=== PATIENT | male | born 1955 | race Caucasian/White ===

== ENCOUNTER → 2016-08-11 | Outpatient (CLI) | payer BC ==
[~2016-08-11] MED LIST: ASPIRIN325 M1 PO; ASPIRIN81 MG PO; COREG3.125 MG PO; EFFIENT10 MG PO; LIPITOR40 MG PO; MELATONIN3 M4 PO; NEXIUM PO; NITROGLYGERIN0.4 MG SL
--- NOTE | ~2016-08-11 | US37 ---
[facility] A Service of [facility] & [facility] RADIOLOGY TEXT RESULTS PATIENT: ISAAC RAY LOCATION: CNIV : 53 UNIT #: [id number] AGE: [address]: Cadence Villalobos MD SEX: M ORDER DR: [id number] [facility] [address] [facility]. [place], [place] [address] [id number] O MR#: [id number] [facility] #: [id number] NAME: ISAAC RAY : 1955 SEX: M STUDY DATE/TIME: 08/11/2016 12:28 UNIT: CNIV ROOM: STUDY DESCRIPTION: US Carotid W/Doppler Bilateral Attending Physician: Cadence Villalobos M.D. Referring Physician: Cadence Villalobos M.D. Ordering Physician: Cadence Villalobos M.D. Primary Care Physician: Rufus Gama M.D. MEDICAL IMAGING REPORT This report is preliminary unless electronic signature is present EXAM Carotid duplex scan. DATE OF EXAMINATION 08/11/2016 HISTORY Carotid bruit. FINDINGS The right common carotid artery has no significant plaque. There is a small amount of heterogeneous plaque in the right carotid bulb. The remainder of the right internal and external carotid artery are patient with minimal plaque. Peak systolic velocity in the distal right internal carotid artery is 75 cm/sec with an end-diastolic velocity of 34 cm/sec. The ICA/CCA ratio on the right is 0.61. Peak systolic velocity in the right external carotid artery is 75 cm/sec. The right vertebral artery is patent with antegrade flow. The left common carotid artery has no significant plaque. There is a small amount of heterogeneous plaque in the left carotid bulb. The remainder of the left internal and external carotid arteries are patent with minimal plaque. Peak systolic velocity in the proximal left internal carotid artery is 80 cm/sec with an end-diastolic velocity of 32 cm/sec. The ICA/CCA ratio on the left is 0.76. Peak systolic velocity in the left external carotid artery is 80 cm/sec. The left vertebral artery is patent with antegrade flow. IMPRESSION Small amount of plaque, but no significant stenosis (less than 50%) in the internal and external carotid arteries bilaterally. Patent vertebral arteries bilaterally with antegrade flow. [facility] A Service of [facility] & [facility] RADIOLOGY TEXT RESULTS PATIENT: ISAAC RAY LOCATION: [facility] : 54 UNIT #: [id number] AGE: [address]: Cadence Villalobos MD SEX: M ORDER DR: Dictated by... Reddy Bond M.D. THIS IS AN ELECTRONICALLY VERIFIED REPORT Reddy Bond M.D. at 08/14/2016 8:03 AM MARLENE/diane TD: 08/11/2016 15:18 JOB #: [id number] MEDICAL IMAGING REPORT Page 1 of 1 COPY
== END | disposition home or self-care (01) ==
LOC: CNIV 12:09
DX: R09.89 Other specified symptoms and signs involving the circulatory and respiratory systems (principal); I65.23 Occlusion and stenosis of bilateral carotid arteries
CPT/HCPCS: 93880

== ENCOUNTER → 2016-09-29 | Outpatient (CLI) | payer BC ==
--- NOTE | ~2016-09-29 | ST ---
Unit #: [id number] #: [id number] Patient: ISAAC RAY [id number] [address] [place], [place] [address] [id number] O MR#: [id number] NAME: ISAAC ARY. : 1955 SEX: M STUDY DATE/TIME: 09/29/2016 UNIT: CEKG ROOM: STUDY DESCRIPTION: Attending Physician: Rufus Gama M.D. Referring Physician: Rufus Gama M.D. Primary Care Physician: Rufus Gama M.D. CARDIOLOGY REPORT EXAM Exercise Cardiolite stress test. FINDINGS Baseline EKG: Normal sinus rhythm with ventricular rate 63 beats per minute, mild left atrial abnormality, low voltage in aVL. PROCEDURE Patient walked on the treadmill for 9 minutes and 30 seconds utilizing Winston protocol, achieving a workload of 11.3 METs. EKG during the test showed a [address] depression inferior anterolateral leads with occasional premature ventricular complex and rare PAC. The patient had no complaints of chest pain, palpitations, or dizziness. Had increased shortness of breath and fatigueness which resolved in recovery phase. IMPRESSION 1. Functional class III with a workload of 11.3 METs. 2. The patient walked for 9 minutes and 30 seconds achieving 86% of maximum target heart rate at 137 beats per minute with a hypertensive blood pressure response of 180/82 mmHg. 3. EKG during the test showed a [address] depression inferior anterolateral leads which normalized near the end of recovery phase. The patient had no complaints of chest pain, palpitations, or dizziness. Had increased shortness of breath and fatigueness which resolved in recovery phase. 4. It is also noted that patient had a rare PAC and occasional premature ventricular complex. 5. Patient's blood pressure decreased down to 142/78 mmHg. 6. Cardiolite was injected at maximum target heart rate. Radionuclide tests pending. Please correlate with nuclear images. Dictated by... Aleida Tapia A.P.R.N. for Armen Kim TD: 09/29/2016 12:53 JOB #: [id number] Unit #: [id number] #: [id number] Patient: ISAAC RAY CARDIOLOGY REPORT Page 1 of 1 X Aleida Tapia APRN CARDIOLOGY REPORT
--- NOTE | ~2016-09-29 | TH ---
Unit #: [id number] #: [id number] Patient: ISAAC RAY [id number] [address] [address] [id number] O MR#: [id number] NAME: ISAAC RAY. : 1955 SEX: M STUDY DATE/TIME: 09/29/2016 UNIT: CEKG ROOM: STUDY DESCRIPTION: Attending Physician: Rufus Gama M.D. Referring Physician: Rufus Gama M.D. Primary Care Physician: Rufus Gama M.D. CARDIOLOGY REPORT EXAM Exercise Cardiolite stress test, nuclear portion. PROCEDURE Using technetium 99m labeled Cardiolite, rest and stress SPECT images were obtained. Multiple SPECT images were obtained in various views including horizontal and vertical long axis and short axis views of the left ventricle. Images were obtained by gated SPECT method. The patient was administered 9.59 mCi of Cardiolite at rest. The patient was administered 29 mCi of Cardiolite at peak exercise. Total exercise time is 9 minutes and 30 seconds. On the stress images, there is normal perfusion noted. The rest images show normal perfusion. Comparing rest and stress images, there is no stress-induced ischemia noted. The left ventricular ejection fraction is calculated to be 66%. There is no focal wall motion abnormality seen. CONCLUSION 1. No stress-induced ischemia noted. 2. The left ventricular ejection fraction is calculated to be 66%. 3. There is no focal wall motion abnormality seen. 4. Normal exercise Cardiolite stress test. Dictated by... Armen Kim TD: 09/29/2016 16:08 JOB #: [id number] CC: Rufus Gama M.D. Unit #: [id number] #: [id number] Patient: ISAAC RAY CARDIOLOGY REPORT Page 1 of 1 X Cadence Villalobos MD <ELECTRONICALLY SIGNED> 11/16/16 1524 CARDIOLOGY REPORT
--- NOTE | ~2016-09-29 | TM ---
[id number] NAME: ISAAC RAY MR#: [id number] EXAM Regular treadmill stress test FINDINGS Resting heart rate is 65, resting blood pressure is 122/82 mmHg. Baseline EKG shows normal sinus rhythm. No significant ST T wave changes. PROCEDURE The patient was made to exercise on a standard Winston protocol. Total exercise time is 9 minutes and 31 seconds, completing stage 3 of a standard Winston protocol. Test stopped because target heart rate achieved. No complaints of chest pain or extreme shortness of breath. Maximal heart rate obtained is 142, which is 89% of maximum predicted heart rate. Maximum blood pressure obtained is 150/82 mmHg. The patient had 1-1.[address] depression noted in the inferior and the inferolateral leads at peak exercise and during recovery. No arrhythmias seen. CONCLUSION 1. Good exercise tolerance. 2. There is 1-1.[address] depression noted in the inferior and the inferolateral leads noted at peak exercise and during recovery which was asymptomatic. 3. Normal heart rate and blood pressure response. 4. Regular treadmill stress test was then changed to an exercise Cardiolite stress test. Dictated by...
== END | disposition home or self-care (01) ==
LOC: CEKG 07:56
DX: R06.09 Other forms of dyspnea (principal)
CPT/HCPCS: 78452; 93017; A9500